=== PATIENT | female | born 1995 | race Caucasian/White ===

== ENCOUNTER 2021-06-09 17:20 | Outpatient (CLI) | payer OTHER, SELFPAY ==
[2021-06-09 17:58] LABS: SARS-CoV-2 Ag Negative (Negative)
== END 2021-06-09 17:21 | disposition home or self-care (01) ==
LOC: CHSLAB 17:22
PROVIDERS: PCP Physician Assistant; Visit Provider Physician Assistant
DX: Z20.822 Contact with and (suspected) exposure to COVID-19 (principal)
CPT/HCPCS: 87426; C9803

== ENCOUNTER 2021-07-11 13:12 | Emergency (ER) | payer OTHER, SELFPAY ==
[2021-07-11 13:20] VITALS: BP 123/82; PULSE 103; RESP 20; TEMP 36.8; O2SAT 99
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
[2021-07-11] MEDS: diphenhydrAMINE HCl INJ 50 MG/ML VIAL IV PUSH (13:28)
[2021-07-11] MEDS: FAMOTIDINE 20 MG/2 ML VIAL IV PUSH (13:30)
[2021-07-11 14:26] VITALS: BP 106/65; PULSE 90; RESP 16; O2SAT 99
== END 2021-07-11 14:25 | disposition home or self-care (01) ==
PROVIDERS: Emergency Provider Family Medicine; PCP Physician Assistant
DX: T78.40XA Allergy, unspecified, initial encounter (principal)
CPT/HCPCS: 96374; 96375; 99283; 99284; J1200

== ENCOUNTER 2022-10-21 13:12 | Emergency (ER) | payer OTHER, SELFPAY ==
[2022-10-21 13:12] VITALS: BP 116/67; PULSE 71; RESP 16; TEMP 36.9; O2SAT 100
[2022-10-21 14:05] LABS: Influenza A QL RT-PCR Negative (Negative); Influenza B QL RT-PCR Negative (Negative); RSV RNA, RT-PCR Negative (Negative); SARS-CoV-2 RNA PCR Negative (Negative)
--- NOTE | 2022-10-21 14:10 | ED.URI ---
HPI - URI/Sore Throat General Chief Complaint: Upper Respiratory Infection Stated Complaint: FLU SYMPTOMS Time Seen by Provider: 10/21/22 14:07 Source: patient Mode of arrival: ambulatory Limitations: no limitations History of Present Illness HPI Narrative: this is a 27-year-old female who presents with some nasal congestion and chest congestion for the last 2 days patient states that she has been exposed to COVID a but has no fever no chills no shortness of breath no nausea vomiting no abdominal pain does have a headache and body aches with no nausea vomiting no diarrhea constipation no dysuria. MD elicited complaint: nasal congestion Onset (ago): day(s) Related Data Home Medications Medication Instructions Recorded Confirmed pregabalin 150 mg capsule 150 mg PO BID 09/01/22 10/21/22 Allergies Allergy/AdvReac Type Severity Reaction Status Date / Time Penicillins Allergy Unknown Verified 09/01/22 14:12 prednisone Allergy Swelling Verified 09/01/22 14:12 of Lip/Tongue/Throat Review of Systems Review of Systems: All systems reviewed & are unremarkable except as noted in HPI and below PMFSH Past Medical History Medical History Asthma Surgical History Surgical History H/O tubal ligation Social History Social History Smoking status: Never smoker Alcohol intake: never Substance use: never Substance use type: does not use Exam Const: General: healthy appearing Nutritional Appearance: well nourished Limitations: no limitations HENMT: Head: normal to inspection Ears: external ears normal Face/Nose/Sinus: Normal external nose present Face and sinus: normal facial exam Mouth: Yes Normal oral and palatal mucosa present Eyes: Conjunctivae: conjunctivae normal Pupils: Equal, round and reactive pupils present EOM: EOMs intact bilaterally Neck: Neck: normal visual inspection, no lymphadenopathy and no meningeal signs Chest: Chest palpation & inspection: normal inspection of the chest Resp: Effort & Inspection: normal respiratory effort Cardio: Rate: regular rate Rhythm: regular rhythm GI: GI Palp: Yes Soft to palpation Auscultation: normal bowel sounds : General: Yes bladder normal to palpation Urinary Catheter: Urinary Catheter: patent and draining Back/Spine/Pelvis: Back: no CVA tenderness Skin: General skin exam: normal color Rashes: no rashes Wounds: no wounds Neuro: General: patient oriented x3 Cranial nerves: Yes Nystagmus not present Speech: normal speech Gait exam (Neuro): Normal gait present Extrem: General: normal to inspection Psych: Mental Status: mental status grossly normal Affect: normal affect Course Course Emergency Course: COVID and influenza negative head reviewed with patient. Vital Signs Vital signs: Vital Signs Temperature 36.9 C 10/21/22 13:12 Pulse Rate 71 10/21/22 13:12 Respiratory Rate 16 10/21/22 13:12 Blood Pressure 116/67 10/21/22 13:12 Pulse Oximetry 100 10/21/22 13:12 Oxygen Delivery Room Air 10/21/22 13:12 Temperature 36.9 C 10/21/22 13:12 Pulse Rate 71 10/21/22 13:12 Respiratory Rate 16 10/21/22 13:12 Blood Pressure 116/67 10/21/22 13:12 Pulse Oximetry 100 10/21/22 13:12 Oxygen Delivery Room Air 10/21/22 13:12 MDM - URI/Sore Throat Lab Data Labs: Lab Results 10/21/22 Range/Units 13:43 Influenza A (RT-PCR) Negative (Negative) Influenza B (RT-PCR) Negative (Negative) RSV (RT-PCR) Negative (Negative) SARS-CoV-2 RNA (RT-PCR) Negative (Negative) Critical Care Time Critical Care Time Critical Care Time: No Discharge Plan Discharge Clinical Impression: Viral infection Patient Disposition: Home, Self-Care Condition: Stable Instructions: Antibiotic Form, Viral Sy
[2022-10-21 14:34] VITALS: BP 115/67; PULSE 71; RESP 20; TEMP 36.6; O2SAT 97
== END 2022-10-21 14:35 | disposition home or self-care (01) ==
LOC: CHSED 14:22
PROVIDERS: Emergency Provider Emergency Medicine; PCP Physician Assistant
DX: B34.9 Viral infection, unspecified (principal); Z20.822 Contact with and (suspected) exposure to COVID-19
CPT/HCPCS: 87637; 99283

== ENCOUNTER 2023-07-13 10:03 | Outpatient (CLI) | payer OTHER, SELFPAY ==
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
== END 2023-07-13 10:04 | disposition home or self-care (01) ==
LOC: ANHNEURO 10:05
PROVIDERS: PCP Physician Assistant; Visit Provider Family Medicine
DX: M54.16 Radiculopathy, lumbar region (principal)
CPT/HCPCS: 95886; 95908

== ENCOUNTER 2024-08-20 10:11 | Emergency (ER) | payer OTHER, SELFPAY ==
[2024-08-20 10:12] VITALS: BP 112/69; PULSE 96; RESP 20; TEMP 36.1; O2SAT 98
--- NOTE | 2024-08-20 10:32 | ED.GENADULT ---
HPI - General Adult General Chief complaint: Wound/Laceration Stated complaint: pain on right hip Time Seen by Provider: 08/20/24 10:29 Source: patient Mode of arrival: ambulatory Limitations: no limitations History of Present Illness HPI narrative: 29 years old white female came to the ED with rash at the right buttock started 7-10 days ago, was seen by urgent care and started on sulfa treatment without any improvement, her symptoms are getting worse. Patient denies having similar symptoms. Related Data Home Medications Medication Instructions Recorded Confirmed pregabalin 150 mg capsule 150 mg PO BID 09/01/22 10/21/22 Allergies Allergy/AdvReac Type Severity Reaction Status Date / Time Penicillins Allergy Unknown Verified 09/01/22 14:12 prednisone Allergy Swelling Verified 09/01/22 14:12 of Lip/Tongue/Throat PMFSH Past Medical History Medical History Asthma Surgical History Surgical History H/O tubal ligation Social History Social History Smoking status: Never smoker Alcohol intake: never Substance use: never Substance use type: does not use Course Vital Signs Vital signs: Vital Signs Temperature 36.1 C L 08/20/24 10:12 Pulse Rate 96 08/20/24 10:12 Respiratory Rate 20 08/20/24 10:12 Blood Pressure 112/69 08/20/24 10:12 Pulse Oximetry 98 08/20/24 10:12 Oxygen Delivery Room Air 08/20/24 10:12 Temperature 36.1 C L 08/20/24 10:12 Pulse Rate 96 08/20/24 10:12 Respiratory Rate 20 08/20/24 10:12 Blood Pressure 112/69 08/20/24 10:12 Pulse Oximetry 98 08/20/24 10:12 Oxygen Delivery Room Air 08/20/24 10:12 Medical Decision Making Vital Signs Vital Signs: Vital Signs Temperature 36.1 C L 08/20/24 10:12 Pulse Rate 96 08/20/24 10:12 Respiratory Rate 20 08/20/24 10:12 Blood Pressure 112/69 08/20/24 10:12 Pulse Oximetry 98 08/20/24 10:12 Oxygen Delivery Room Air 08/20/24 10:12 Temperature 36.1 C L 08/20/24 10:12 Pulse Rate 96 08/20/24 10:12 Respiratory Rate 20 08/20/24 10:12 Blood Pressure 112/69 08/20/24 10:12 Pulse Oximetry 98 08/20/24 10:12 Oxygen Delivery Room Air 08/20/24 10:12 Lab Data Labs: Lab Results 08/20/24 08/20/24 Range/Units 10:29 10:41 Herpes Virus Source Pending Herpes Simplex Culture Pending HSV I DNA PCR Pending HSV II DNA PCR Pending HSV (PCR) Source Pending Discharge Plan Discharge Clinical Impression: Herpes dermatitis Patient Disposition: Home, Self-Care Condition: Stable Instructions: Shingles (ED) Additional Instructions: Return if symptoms are worsening , call your family physician for appointment, take Tylenol as as needed for aches and pain, continue home medications. Prescriptions: New valacyclovir [Valtrex] 1 gram tablet 1,000 mg PO Q8H Qty: 21 0RF No Action pregabalin 150 mg capsule 150 mg PO BID Follow-up/Referrals: UNKNOWN,DOCTOR [Primary Care Provider] -
[2024-08-20 10:57] VITALS: BP 109/70; PULSE 80; RESP 16; TEMP 36.6; O2SAT 99
[2024-08-24 02:24] LABS: Herpes Simplex Type 1 DNA PCR Not Detected (Not Detected); Herpes Simplex Type 2 DNA PCR Not Detected (Not Detected)
[2024-08-24 16:24] LABS: Source NOT GIVEN
== END 2024-08-20 10:57 | disposition home or self-care (01) ==
PROVIDERS: Emergency Provider Emergency Medicine
DX: B00.1 Herpesviral vesicular dermatitis (principal)
CPT/HCPCS: 36415; 87255; 87529; 99283